=== PATIENT | male | born 1990 | race African-American/Black ===

== ENCOUNTER 2021-10-15 09:29 | Emergency (ER) | payer BC ==
[~2021-10-15] VITALS: Ht 182.9 cm; Wt 122.7 kg
[2021-10-15 09:41] VITALS: TEMP 98.3
[2021-10-15] MEDS ORDERED: ROXICODONE 55 MG/TAB PO (11:31)
[2021-10-15 12:06] VITALS: BP 179/103; PULSE 120
== END 2021-10-15 12:09 | disposition home or self-care (01) ==
LOC: COL.ER 09:29
DX: S42.001A Fracture of unspecified part of right clavicle, initial encounter for closed fracture (principal); S22.41XA Multiple fractures of ribs, right side, initial encounter for closed fracture; S27.329A Contusion of lung, unspecified, initial encounter; V42.6XXA Car passenger injured in collision with two- or three-wheeled motor vehicle in traffic accident, initial encounter; Y92.410 Unspecified street and highway as the place of occurrence of the external cause
CPT/HCPCS: Q9967